=== PATIENT | female | born 1980 | race African-American/Black ===

== ENCOUNTER 2016-12-25 10:00 | Emergency (ER) | payer OTHER ==
[~2016-12-25] VITALS: Ht 170.2 cm; Wt 70.0 kg
[~2016-12-25 10:00] MED LIST: CIME400T PO; LORT5TAB PO; PREN0.01 PO; [UNRECOGNIZED DRUG - REMARK]
[2016-12-25 10:03] VITALS: BP 112/72; PULSE 75; RESP 16; TEMP 98.8; O2SAT 98
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
[2016-12-25] MEDS ORDERED: CYCL1TAB29 PO (10:19)
[2016-12-25] MEDS ORDERED: IBUP-232 PO (10:19)
== END 2016-12-25 10:42 | disposition home or self-care (01) ==
LOC: NEPK 10:00
DX: M54.5 Low back pain (principal); V43.52XA Car driver injured in collision with other type car in traffic accident, initial encounter; Y92.414 Local residential or business street as the place of occurrence of the external cause
CPT/HCPCS: 99283